=== PATIENT | male | born 1995 ===

== ENCOUNTER 2018-05-06 13:49 | Emergency (ER) | payer OTHER ==
[2018-05-06 14:05] LABS: BASOPHILS % (AUTO) 1 % (0-3); EOSINOPHILS % (AUTO) 1 % (0-9); HEMATOCRIT 49 % (39-53); HEMOGLOBIN 15.9 gm/dl (13.5-17.7); LYMPHOCYTES % (AUTO) 36.3 % (10-50); MEAN CORPUSCULAR HEMOGLOBIN 28.8 pg (27.0-32.0); MEAN CORPUSCULAR HGB CONC 32.1 gm/dl (32.0-36.0); MEAN CORPUSCULAR VOLUME 90 fL (80-100); MONOCYTES % (AUTO) 7.3 % (0-12)
[2018-05-06 14:27] LABS: CALCIUM 9.4 mg/dl (8.5-10.1); CARBON DIOXIDE 29.4 mEq/L (21-32); CREATININE 1.24 mg/dl (0.80-1.30); POTASSIUM 4.9 mMol/L (3.5-5.1)
[2018-05-06 14:50] VITALS: TEMP 98.1
[2018-05-06] MEDS ORDERED: MORPHINE SULFATE 10 MG/ML SOL IV ONE (14:59)
[2018-05-06] MEDS ORDERED: MORPHINE SULFATE 10 MG/ML SOL ONE (15:02)
[2018-05-06] MEDS ORDERED: KETOROLAC TROMETHAMINE 30 MG/ML SOL IV ONE (16:12)
[2018-05-06] MEDS ORDERED: KETOROLAC TROMETHAMINE 30 MG/ML SOL ONE (16:13)
[2018-05-06 16:25] VITALS: O2SAT 100
[2018-05-06 16:50] VITALS: BP 118/87; PULSE 96; RESP 23
[2018-05-06] MEDS ORDERED: ACETAMI/HYDROCO 325/10 TAB PO ONE (16:57)
[2018-05-06] MEDS ORDERED: APAP/HYDROCODONE 1 EACH TABLET ONE (16:58)
[2018-05-06] MEDS ORDERED: APAP/HYDROCODONE 1 EACH TABLET PO ONE (16:58)
== END 2018-05-06 16:44 | disposition home or self-care (01) | DRG 556 ==
LOC: ED 13:49
DX: M79.18 Myalgia, other site (principal); V59.59XA Passenger in pick-up truck or van injured in collision with other motor vehicles in traffic accident, initial encounter; Y92.413 State road as the place of occurrence of the external cause; Y93.9 Activity, unspecified; Y99.9 Unspecified external cause status
CPT/HCPCS: 70450; 72125; 80048; 85025; 96374; 96375; 99284; 99285; G0390; J1885; J2270; A9270-GY